=== PATIENT | female | born 1940 | race Caucasian/White ===

== ENCOUNTER 2017-04-07 15:22 | Observation (INO) | payer OTHER ==
[~2017-04-07] VITALS: Ht 165.1 cm; Wt 99.3 kg
[2017-04-07] MEDS ORDERED: SODIUM CHLORIDE FLUSH 10ML SYR IVF ONE (16:00)
[2017-04-07] MEDS ORDERED: ASPIRIN 81 MG TABLET CHEW PO ONE (16:00)
[2017-04-07] MEDS ORDERED: ASPIRIN 81 MG TABLET CHEW ONE (16:04)
[2017-04-07 16:11] LABS: BASOPHILS # (AUTO) 0.04 x10^3/uL (0-0.1); BASOPHILS % (AUTO) 1 % (0-1); EOSINOPHILS # (AUTO) 0.13 x10^3/uL (0-0.4); EOSINOPHILS % (AUTO) 2 % (1-7); LYMPHOCYTES # (AUTO) 1.82 x10^3/uL (1-3.4); LYMPHOCYTES % (AUTO) 22 % (22-44); MD NO; MEAN CORPUSCULAR HEMOGLOBIN 29.3 pg (27.0-34.8); MEAN CORPUSCULAR HGB CONC 33.2 g/dL (32.4-35.8); MEAN CORPUSCULAR VOLUME 88.2 fL (80-100); MEAN PLATELET VOLUME 8.9 fL (7.4-10.4); MONOCYTES # (AUTO) 0.63 x10^3/uL (0.2-0.8); MONOCYTES % (AUTO) 8 % (2-9); NEUTROPHILS # (AUTO) 5.58 x10^3/uL (1.8-6.8); NEUTROPHILS % (AUTO) 68 % (42-75); PLATELET COUNT 330 x10^3/uL (130-400); RED BLOOD COUNT 4.91 x10^6/uL (3.82-5.3); RED CELL DISTRIBUTION WIDTH 14.1 % (9.6-15.2)
[2017-04-07 16:22] LABS: ALBUMIN 3.7 g/dL (3.4-5.0); ANION GAP 6 mmol/L (5-15); CALCIUM 8.4 mg/dL (8.5-10.1); CHLORIDE 108 mmol/L (98-107); CREATININE 1.07 mg/dL (0.55-1.02)
[2017-04-07 16:26] LABS: ALANINE AMINOTRANSFERASE 18 U/L (12-78); ALKALINE PHOSPHATASE 91 U/L (45-117); BILIRUBIN,TOTAL 0.3 mg/dL (0.2-1.0); TOTAL PROTEIN 7.2 g/dL (6.4-8.2); TROPONIN I < 0.015 ng/mL (0.000-0.045)
[2017-04-07] MEDS ORDERED: ONDANSETRON 2MG/ML, 2ML IVPush PRN (18:00)
[2017-04-07] MEDS ORDERED: HYDROcodone/APAP 5/325 TABLET PO PRN (18:00)
[2017-04-07] MEDS ORDERED: ACETAMINOPHEN 325 MG TABLET PO PRN (18:00)
[2017-04-07] MEDS ORDERED: hydrALAzine 20 MG/ML, 1ML IVPush PRN (18:00)
[2017-04-07] MEDS ORDERED: TEMAZEPAM 15 MG CAPSULE PO PRN (18:00)
[2017-04-07] MEDS ORDERED: morphine SULFATE 10 MG/ML, 1ML IVPush PRN (18:00)
[2017-04-07] MEDS ORDERED: GABA300C10 PO (18:12)
[2017-04-07] MEDS ORDERED: FENO54TA17 PO (18:12)
[2017-04-07] MEDS ORDERED: ATOR40TA78 PO (18:12)
[2017-04-07] MEDS ORDERED: LEVO112T4 PO (18:12)
[2017-04-07] MEDS ORDERED: LISI-424 PO (18:12)
[2017-04-07] MEDS ORDERED: PANT20TA3 PO (18:12)
[2017-04-07] MEDS ORDERED: ASPI-621 PO (18:14)
[2017-04-07 18:34] LABS: FREE T4 (FREE THYROXINE) 1.36 ng/dL (0.76-1.46); THYROID STIMULATING HORMONE 0.323 mIU/L (0.358-3.740)
[2017-04-07 18:47] LABS: HEMOGLOBIN A1C 6.8 % (4.2-6.3)
[2017-04-07] MEDS ORDERED: ATORVASTATIN 40 MG TABLET PO SCH (21:00)
[2017-04-07] MEDS ORDERED: ENOXAPARIN 40 MG/0.4 ML SQ SCH (21:00)
[2017-04-07 21:29] VITALS: BP 146/70
[2017-04-07] MEDS: GABAPENTIN 300 MG CAPSULE PO SCH ×2 (22:00→22:02)
[2017-04-07] MEDS: SODIUM CHLORIDE 0.9% 1,000 ML IV SCH (22:02)
[2017-04-07 22:18] LABS: TROPONIN I < 0.015 ng/mL (0.000-0.045)
[2017-04-08 00:21] VITALS: BP 108/70
[2017-04-08 04:32] LABS: MICROSCOPIC NOT IND
[2017-04-08 04:35] LABS: CULTURE INDICATED? NO
[2017-04-08 05:11] LABS: ALBUMIN 3.1 g/dL (3.4-5.0); ANION GAP 7 mmol/L (5-15); CALCIUM 8.3 mg/dL (8.5-10.1); CHLORIDE 110 mmol/L (98-107)
[2017-04-08 05:12] LABS: CREATININE 0.84 mg/dL (0.55-1.02)
[2017-04-08 05:16] LABS: TROPONIN I < 0.015 ng/mL (0.000-0.045)
[2017-04-08] MEDS ORDERED: LEVOTHYROXINE 112 MCG TABLET PO SCH (06:00)
[2017-04-08] MEDS ORDERED: ASPIRIN 81 MG TABLET EC PO SCH (06:00)
[2017-04-08 07:10] VITALS: BP 111/70
[2017-04-08] MEDS ORDERED: PANTOPRAZOLE 20MG TABLET PO SCH (07:30)
[2017-04-08] MEDS: GABAPENTIN 300 MG CAPSULE PO SCH (08:01)
[2017-04-08] MEDS ORDERED: REGADENOSON 0.4 MG/5 ML SYRINGE ONE (08:55)
[2017-04-08] MEDS ORDERED: LISINOPRIL 5 MG TABLET PO SCH (09:00)
[2017-04-08] MEDS ORDERED: FENOFIBRATE 54 MG TABLET PO SCH (09:00)
[2017-04-08] MEDS: SODIUM CHLORIDE 0.9% 1,000 ML IV SCH (13:18)
[2017-04-08] MEDS ORDERED: PANT20TA3 PO (14:41)
[2017-04-08 14:50] VITALS: BP 120/77
== END 2017-04-08 16:32 | disposition home or self-care (01) ==
LOC: ED 16:53 → EDIP 16:54 → ED 17:26 → SUATTDRO 17:30 → 5SO 19:49 → DCLOUNGE 04-08 16:20
PROVIDERS: ADMIT Internal Medicine; ATTEND Internal Medicine
DX: R07.89 Other chest pain (principal); N17.9 Acute kidney failure, unspecified; I10 Essential (primary) hypertension; E11.65 Type 2 diabetes mellitus with hyperglycemia; E03.9 Hypothyroidism, unspecified; E78.5 Hyperlipidemia, unspecified; K21.9 Gastro-esophageal reflux disease without esophagitis; E11.42 Type 2 diabetes mellitus with diabetic polyneuropathy; Z80.0 Family history of malignant neoplasm of digestive organs; Z80.1 Family history of malignant neoplasm of trachea, bronchus and lung; Z87.891 Personal history of nicotine dependence
CPT/HCPCS: 36415; 71046; 78452; 80048; 80053; 81003; 82040; 83036; 83735; 84100; 84439; 84443; 84484; 85025; 93005; 93017; 96360; 96361; 96372; 99285; A9502; C9898; G0378; J1650; J2785; J7030

== ENCOUNTER 2017-11-26 13:39 | Emergency (ER) | payer OTHER ==
[~2017-11-26] VITALS: Ht 165.1 cm; Wt 100.8 kg
[~2017-11-26 13:39] MED LIST: ASPI-621 PO; ATOR40TA78 PO; FENO54TA17 PO; GABA300C10 PO; LEVO112T4 PO; LISI-424 PO; PANT20TA3 PO
[2017-11-26 13:58] VITALS: BP 134/70
[2017-11-26 14:27] LABS: BASOPHILS # (AUTO) 0.04 x10^3/uL (0-0.1); BASOPHILS % (AUTO) 1 % (0-1); EOSINOPHILS # (AUTO) 0.09 x10^3/uL (0-0.4); EOSINOPHILS % (AUTO) 1 % (1-7); LYMPHOCYTES # (AUTO) 1.56 x10^3/uL (1-3.4); LYMPHOCYTES % (AUTO) 21 % (22-44); MD NO; MEAN CORPUSCULAR HGB CONC 33.9 g/dL (32.4-35.8); MEAN CORPUSCULAR VOLUME 88.7 fL (80-100); MEAN PLATELET VOLUME 8.8 fL (7.4-10.4); MONOCYTES # (AUTO) 0.48 x10^3/uL (0.2-0.8); MONOCYTES % (AUTO) 6 % (2-9); NEUTROPHILS # (AUTO) 5.46 x10^3/uL (1.8-6.8); NEUTROPHILS % (AUTO) 72 % (42-75); PLATELET COUNT 383 x10^3/uL (130-400); RED CELL DISTRIBUTION WIDTH 14.7 % (9.6-15.2)
[2017-11-26 14:42] LABS: ALANINE AMINOTRANSFERASE 18 U/L (12-78); ALBUMIN 3.5 g/dL (3.4-5.0); ANION GAP 8 mmol/L (5-15); CALCIUM 9.1 mg/dL (8.5-10.1); CHLORIDE 104 mmol/L (98-107); CREATININE 1.54 mg/dL (0.55-1.02)
[2017-11-26 14:47] LABS: ALKALINE PHOSPHATASE 72 U/L (45-117); BILIRUBIN,TOTAL 0.5 mg/dL (0.2-1.0); TOTAL PROTEIN 6.9 g/dL (6.4-8.2)
== END 2017-11-26 16:12 | disposition home or self-care (01) ==
LOC: ED 15:50
DX: R60.0 Localized edema (principal); E03.9 Hypothyroidism, unspecified; E78.00 Pure hypercholesterolemia, unspecified; K21.9 Gastro-esophageal reflux disease without esophagitis; M19.90 Unspecified osteoarthritis, unspecified site
CPT/HCPCS: 36415; 80053; 85025; 99285

== ENCOUNTER → 2017-12-10 | Outpatient (CLI) | payer OTHER | END | disposition home or self-care (01) | LOC: CFH 11:35 | PROVIDERS: ATTEND Internal Medicine | DX: M17.12 Unilateral primary osteoarthritis, left knee (principal) ==

== ENCOUNTER → 2017-12-13 | Outpatient (CLI) | payer OTHER | END | disposition home or self-care (01) | LOC: CFH 08:44 | PROVIDERS: ATTEND Internal Medicine | DX: J44.9 Chronic obstructive pulmonary disease, unspecified (principal); R91.1 Solitary pulmonary nodule; I25.10 Atherosclerotic heart disease of native coronary artery without angina pectoris | CPT/HCPCS: 71250 ==

== ENCOUNTER → 2018-05-13 | Outpatient (CLI) | payer MEDICARE ==
[~2018-05-13] MED LIST changes: -ASPI-621 PO; +ASPI81TA45 PO
== END | disposition home or self-care (01) ==
LOC: CFH 12:08
PROVIDERS: ATTEND Internal Medicine
DX: Z13.820 Encounter for screening for osteoporosis (principal); M85.88 Other specified disorders of bone density and structure, other site; M94.261 Chondromalacia, right knee; M17.9 Osteoarthritis of knee, unspecified
CPT/HCPCS: 77080

== ENCOUNTER → 2018-07-27 | Outpatient (CLI) | payer MEDICARE | END | disposition home or self-care (01) | LOC: CFH 09:39 | PROVIDERS: ATTEND Internal Medicine | DX: R91.1 Solitary pulmonary nodule (principal); M51.34 Other intervertebral disc degeneration, thoracic region; I25.10 Atherosclerotic heart disease of native coronary artery without angina pectoris; I70.0 Atherosclerosis of aorta; I12.9 Hypertensive chronic kidney disease with stage 1 through stage 4 chronic kidney disease, or unspecified chronic kidney disease; E11.22 Type 2 diabetes mellitus with diabetic chronic kidney disease; N18.3 Chronic kidney disease, stage 3 (moderate); E03.9 Hypothyroidism, unspecified; K21.9 Gastro-esophageal reflux disease without esophagitis; Z79.899 Other long term (current) drug therapy; Z91.041 Radiographic dye allergy status | CPT/HCPCS: 71250 ==

== ENCOUNTER → 2018-08-31 | Outpatient (CLI) | payer MEDICARE | END | disposition home or self-care (01) | LOC: CFH 07:06 | PROVIDERS: ATTEND Internal Medicine | DX: R60.0 Localized edema (principal) | CPT/HCPCS: 93970 ==

== ENCOUNTER 2019-03-15 11:25 | Outpatient (CLI) | payer MEDICARE ==
[2019-03-15] MEDS ORDERED: MIDAZOLAM 1 MG/ML, 5ML ONE (12:53)
[2019-03-15] MEDS ORDERED: FENTANYL PF 100 MCG/2ML ONE (12:53)
[2019-05-24] MEDS ORDERED: POTA10TA6 PO (10:57)
[2019-05-24] MEDS ORDERED: MV-M1TAB16 PO (10:57)
[2019-05-24] MEDS ORDERED: MAGN400T9 PO (10:57)
[2019-05-24] MEDS ORDERED: UBID100C24 PO (10:57)
[2019-05-24] MEDS ORDERED: FURO20TA3 PO (10:57)
[2019-05-24] MEDS ORDERED: GABA600T7 PO ×2 (10:57)
== END 2019-03-15 23:59 | disposition home or self-care (01) ==
LOC: RAD 11:25
PROVIDERS: ATTEND Registered Nurse Registered Nurse First Assistant
DX: M47.817 Spondylosis without myelopathy or radiculopathy, lumbosacral region (principal); M41.56 Other secondary scoliosis, lumbar region; M51.25 Other intervertebral disc displacement, thoracolumbar region; Z87.891 Personal history of nicotine dependence; Z90.710 Acquired absence of both cervix and uterus; E10.9 Type 1 diabetes mellitus without complications; I10 Essential (primary) hypertension; N28.9 Disorder of kidney and ureter, unspecified; Z98.890 Other specified postprocedural states; Z91.041 Radiographic dye allergy status
CPT/HCPCS: 72110; 72148; 99156; 99157; J2250; J3010

== ENCOUNTER → 2019-05-24 | Outpatient (CLI) | payer MEDICARE ==
[~2019-05-24] MED LIST changes: +FURO20TA3 PO; +GABA600T7 PO; +MAGN400T9 PO; +MV-M1TAB16 PO; +POTA10TA6 PO; +UBID100C24 PO
[2019-05-24 11:21] LABS: MICROSCOPIC NOT IND
[2019-05-24 11:22] LABS: CULTURE INDICATED? NO
[2019-05-24 11:22] LABS: BASOPHILS # (AUTO) 0.04 x10^3/uL (0-0.1); BASOPHILS % (AUTO) 1 % (0-1); EOSINOPHILS % (AUTO) 1 % (1-7); LYMPHOCYTES # (AUTO) 1.21 x10^3/uL (1-3.4); LYMPHOCYTES % (AUTO) 13 % (22-44); MD NO; MEAN CORPUSCULAR HEMOGLOBIN 29.7 pg (27.0-34.8); MEAN CORPUSCULAR HGB CONC 32.9 g/dL (32.4-35.8); MEAN CORPUSCULAR VOLUME 90.2 fL (80-100); MEAN PLATELET VOLUME 7.7 fL (7.4-10.4); MONOCYTES # (AUTO) 0.42 x10^3/uL (0.2-0.8); MONOCYTES % (AUTO) 5 % (2-9); NEUTROPHILS # (AUTO) 7.39 x10^3/uL (1.8-6.8); NEUTROPHILS % (AUTO) 81 % (42-75); PLATELET COUNT 459 x10^3/uL (130-400); RED BLOOD COUNT 4.82 x10^6/uL (3.82-5.3); RED CELL DISTRIBUTION WIDTH 14.1 % (9.6-15.2)
[2019-05-24 11:33] LABS: INTERNATIONAL NORMALIZED RATIO 0.97 (0.93-1.1); PROTHROMBIN TIME 10.3 Seconds (9.6-11.5)
[2019-05-24 11:34] LABS: ALANINE AMINOTRANSFERASE 20 U/L (12-78); ALBUMIN 3.3 g/dL (3.4-5.0); ANION GAP 7 mmol/L (5-15); CALCIUM 9.9 mg/dL (8.5-10.1); CHLORIDE 104 mmol/L (98-107)
[2019-05-24 11:36] LABS: ALKALINE PHOSPHATASE 94 U/L (45-117); BILIRUBIN,TOTAL 0.4 mg/dL (0.2-1.0); TOTAL PROTEIN 7.5 g/dL (6.4-8.2)
== END | disposition home or self-care (01) ==
LOC: STAR 10:11
PROVIDERS: ATTEND Neurological Surgery
DX: Z01.818 Encounter for other preprocedural examination (principal); M48.061 Spinal stenosis, lumbar region without neurogenic claudication
CPT/HCPCS: 36415; 71046; 80053; 81003; 83036; 85025; 85610; 85730; 93005

== ENCOUNTER 2019-08-16 10:36 | Outpatient (CLI) | payer MEDICARE ==
[2019-08-16] MEDS ORDERED: OXYB5TAB10 PO (11:39)
[2019-08-16] MEDS ORDERED: PANT20TA3 PO (11:39)
[2019-08-16] MEDS ORDERED: CHOL10003 PO (11:39)
[2019-08-16 12:06] LABS: MICROSCOPIC NOT IND
[2019-08-16 12:06] LABS: BASOPHILS # (AUTO) 0.05 x10^3/uL (0-0.1); BASOPHILS % (AUTO) 1 % (0-1); EOSINOPHILS # (AUTO) 0.08 x10^3/uL (0-0.4); EOSINOPHILS % (AUTO) 1 % (1-7); LYMPHOCYTES % (AUTO) 20 % (22-44); MD NO; MEAN CORPUSCULAR HEMOGLOBIN 30.5 pg (27.0-34.8); MEAN CORPUSCULAR HGB CONC 33.6 g/dL (32.4-35.8); MEAN CORPUSCULAR VOLUME 90.6 fL (80-100); MEAN PLATELET VOLUME 8.5 fL (7.4-10.4); MONOCYTES # (AUTO) 0.57 x10^3/uL (0.2-0.8); MONOCYTES % (AUTO) 8 % (2-9); NEUTROPHILS # (AUTO) 5.03 x10^3/uL (1.8-6.8); NEUTROPHILS % (AUTO) 71 % (42-75); PLATELET COUNT 355 x10^3/uL (130-400); RED CELL DISTRIBUTION WIDTH 14.6 % (9.6-15.2)
[2019-08-16 12:10] LABS: INTERNATIONAL NORMALIZED RATIO 0.96 (0.93-1.1); PROTHROMBIN TIME 10.2 Seconds (9.6-11.5)
[2019-08-16 12:12] LABS: ALANINE AMINOTRANSFERASE 21 U/L (12-78); ANION GAP 4 mmol/L (5-15); CALCIUM 9.5 mg/dL (8.5-10.1); CHLORIDE 101 mmol/L (98-107); CREATININE 1.08 mg/dL (0.55-1.02)
[2019-08-16 12:14] LABS: ALKALINE PHOSPHATASE 81 U/L (45-117); BILIRUBIN,TOTAL 0.7 mg/dL (0.2-1.0); TOTAL PROTEIN 7.5 g/dL (6.4-8.2)
== END 2019-08-16 23:59 | disposition home or self-care (01) ==
LOC: STAR 10:36
PROVIDERS: ATTEND Neurological Surgery
DX: Z01.818 Encounter for other preprocedural examination (principal); M48.061 Spinal stenosis, lumbar region without neurogenic claudication; J84.10 Pulmonary fibrosis, unspecified; M47.814 Spondylosis without myelopathy or radiculopathy, thoracic region
CPT/HCPCS: 36415; 71046; 80053; 81003; 83036; 85025; 85610; 85730; 93005

== ENCOUNTER 2019-08-29 11:36 | Observation (INO) | payer MEDICARE ==
[~2019-08-29] VITALS: Ht 160 cm; Wt 100.1 kg
[~2019-08-29 11:36] MED LIST changes: +BACITRACIN 50,000 UNIT ONE; +BUPIVACAINE/EPI 0.5% 1:200K ONE; +BUPIVACAINE/PF-EPI 0.25% 1:200K ONE; +CHOL10003 PO; +OXYB5TAB10 PO; +VANCOMYCIN 1,000 MG ONE
[2019-08-29 12:01] VITALS: BP 147/79
[2019-08-29] MEDS ORDERED: LIDOCAINE-MPF 1%, 2ML INFIL ONE (12:03)
[2019-08-29] MEDS ORDERED: LACTATED RINGERS 1,000 ML IV ONE (12:03)
[2019-08-29] MEDS ORDERED: CHLORHEXIDINE 15 ML UDC MM STA (12:03)
[2019-08-29] MEDS ORDERED: FENTANYL PF 250 MCG/5ML ONE (14:53)
[2019-08-29] MEDS ORDERED: BUPIVACAINE/PF 0.25% ONE (15:16)
[2019-08-29] MEDS ORDERED: EPINEPHRINE 1 MG/ML, 1ML ONE (15:16)
[2019-08-29] MEDS ORDERED: LIDOCAINE PF 2%, 5ML ONE (15:38)
[2019-08-29] MEDS ORDERED: SUCCINYLCHOLINE 20 MG/ML, 10ML ONE (15:38)
[2019-08-29] MEDS ORDERED: ROCURONIUM 10 MG/ML,10ML ONE (15:38)
[2019-08-29] MEDS ORDERED: HYDROmorphone 1 MG/ML, 1ML INJ IVPush PRN ×2 (16:30→17:30)
[2019-08-29] MEDS ORDERED: ALBUTEROL SULFATE 2.5 MG/3 ML NPPB PRN (16:30)
[2019-08-29] MEDS ORDERED: ACETAMINOPHEN 325 MG TABLET PO PRN (16:30)
[2019-08-29] MEDS ORDERED: MIDAZOLAM 1 MG/ML, 2ML IV PRN (16:30)
[2019-08-29] MEDS ORDERED: LABETALOL 5MG/ML, 20ML IV PRN (16:30)
[2019-08-29] MEDS ORDERED: PROMETHAZINE 25 MG/ML, 1ML IVPush PRN (16:30)
[2019-08-29] MEDS ORDERED: FENTANYL PF 100 MCG/2ML IV PRN (16:30)
[2019-08-29] MEDS ORDERED: hydrALAzine 20 MG/ML, 1ML IV PRN (16:30)
[2019-08-29] MEDS ORDERED: OXYcodone 5 MG/5 ML ORAL.SOL UDC PO PRN (16:30)
[2019-08-29] MEDS ORDERED: METHOCARBAMOL 1,000 MG in DEXTROSE 5% 100 ML IV PRN (16:30)
[2019-08-29] MEDS ORDERED: DEXAMETHASONE 4 MG/ML, 1ML ONE (17:21)
[2019-08-29] MEDS ORDERED: PROPOFOL 10 MG/ML, 20ML ONE (17:21)
[2019-08-29] MEDS ORDERED: CEFAZOLIN 1,000 MG ONE (17:21)
[2019-08-29] MEDS ORDERED: ONDANSETRON 2MG/ML, 2ML ONE ×2 (17:21→19:20)
[2019-08-29] MEDS ORDERED: HYDROcodone/APAP 10/325 MG TABLET PO PRN (17:30)
[2019-08-29] MEDS ORDERED: TIZANIDINE 2MG TABLET PO PRN (17:30)
[2019-08-29] MEDS ORDERED: PROMETHAZINE 25 MG/ML, 1ML IM PRN (17:30)
[2019-08-29] MEDS ORDERED: SENNA/DOCUSATE TABLET PO PRN (17:30)
[2019-08-29] MEDS ORDERED: BISACODYL 10 MG SUPP PR PRN (17:30)
[2019-08-29] MEDS ORDERED: MAGNESIUM HYDROXIDE 8%, 30ML UDC PO PRN (17:30)
[2019-08-29] MEDS ORDERED: PHARMACY MAY ADJ FOR RENAL FX MC PRN (17:30)
[2019-08-29] MEDS ORDERED: DIPHENHYDRAMINE 50 MG/ML, 1ML IVPush PRN (17:30)
[2019-08-29] MEDS ORDERED: MEPERIDINE/PF 100 MG/ML IM PRN (17:30)
[2019-08-29] MEDS ORDERED: HYDROmorphone 1 MG/ML, 1ML INJ ONE (17:46)
[2019-08-29] MEDS ORDERED: OXYcodone 5 MG/5 ML ORAL.SOL UDC ONE (17:47)
[2019-08-29] MEDS ORDERED: METHOCARBAMOL 1,000 MG in DEXTROSE 5% 100 ML IV ONE (18:00)
[2019-08-29] MEDS ORDERED: FENTANYL PF 100 MCG/2ML ONE (18:04)
[2019-08-29] MEDS: ONDANSETRON 2MG/ML, 2ML IVPush PRN (19:20)
[2019-08-29 19:30] VITALS: BP 146/85
[2019-08-29] MEDS ORDERED: TEMPLATE NON-FORMULARY MED. (Gabapentin** 600 MG) PO SCH (21:00)
[2019-08-29] MEDS ORDERED: GABAPENTIN PO SCH (21:00)
[2019-08-29] MEDS: FENOFIBRATE 54 MG TABLET PO SCH (22:11)
[2019-08-29] MEDS: LISINOPRIL 5 MG TABLET PO SCH (22:11)
[2019-08-29] MEDS: GABAPENTIN 300 MG CAPSULE PO SCH (22:11)
[2019-08-29] MEDS: OXYBUTYNIN CHLORIDE 5 MG TABLET PO SCH (22:11)
[2019-08-29] MEDS: DIAZEPAM 5 MG TABLET PO PRN (23:54)
[2019-08-29] MEDS: SODIUM CHLORIDE 0.9% 1,000 ML IV SCH (23:54)
[2019-08-29] MEDS: CEFAZOLIN PMX 1GM/50ML 50 ML IVPB SCH (23:55)
[2019-08-29] MEDS: OXYcodone/APAP 5/325MG TABLET PO PRN (23:55)
[2019-08-29] MEDS: SODIUM CHLORIDE FLUSH 10ML SYR IVF SCH (23:56)
[2019-08-30 00:25] VITALS: BP 119/70
[2019-08-30] MEDS: ONDANSETRON 2MG/ML, 2ML IVPush PRN ×2 (02:01→09:04)
[2019-08-30 03:51] VITALS: BP 120/76
[2019-08-30] MEDS: OXYcodone/APAP 5/325MG TABLET PO PRN ×4 (05:04→22:04)
[2019-08-30 07:47] VITALS: BP 109/67
[2019-08-30] MEDS ORDERED: ASPIRIN 81 MG TABLET EC PO SCH (09:00)
[2019-08-30] MEDS: PANTOPRAZOLE 20MG TABLET PO SCH (09:03)
[2019-08-30] MEDS: GABAPENTIN 300 MG CAPSULE PO SCH ×3 (09:03→21:58)
[2019-08-30] MEDS: POTASSIUM CHLORIDE 10 MEQ TABLET.ER PO SCH (09:03)
[2019-08-30] MEDS: OXYBUTYNIN CHLORIDE 5 MG TABLET PO SCH ×3 (09:04→21:58)
[2019-08-30] MEDS: LEVOTHYROXINE 112 MCG TABLET PO SCH (09:04)
[2019-08-30] MEDS: SODIUM CHLORIDE FLUSH 10ML SYR IVF SCH ×2 (09:04→21:59)
[2019-08-30] MEDS: FUROSEMIDE 20 MG TABLET PO SCH (09:04)
[2019-08-30] MEDS: MAGNESIUM OXIDE 400 MG TABLET PO SCH (09:04)
[2019-08-30] MEDS: CEFAZOLIN PMX 1GM/50ML 50 ML IVPB SCH (09:22)
[2019-08-30] MEDS: SODIUM CHLORIDE 0.9% 1,000 ML IV SCH ×2 (09:23→22:04)
[2019-08-30] MEDS ORDERED: TIZANIDINE 4MG TABLET PO PRN (09:30)
[2019-08-30] MEDS: DIAZEPAM 5 MG TABLET PO PRN (12:45)
[2019-08-30 14:15] VITALS: BP 81/52
[2019-08-30 14:20] VITALS: BP 92/50
[2019-08-30] MEDS ORDERED: SODIUM CHLORIDE 0.9%, 500ML IVBOLUS ONE (15:00)
[2019-08-30 21:07] VITALS: BP 104/73
[2019-08-30] MEDS: FENOFIBRATE 54 MG TABLET PO SCH (21:58)
[2019-08-30] MEDS: LISINOPRIL 5 MG TABLET PO SCH (21:59)
[2019-08-31 00:54] VITALS: BP 122/73
[2019-08-31] MEDS: OXYcodone/APAP 5/325MG TABLET PO PRN (04:00)
[2019-08-31 07:51] VITALS: BP 93/55
[2019-08-31] MEDS: SODIUM CHLORIDE FLUSH 10ML SYR IVF SCH ×2 (08:11→20:18)
[2019-08-31] MEDS: FUROSEMIDE 20 MG TABLET PO SCH (08:16)
[2019-08-31] MEDS: OXYBUTYNIN CHLORIDE 5 MG TABLET PO SCH ×3 (08:22→20:18)
[2019-08-31] MEDS: POTASSIUM CHLORIDE 10 MEQ TABLET.ER PO SCH (08:22)
[2019-08-31] MEDS: LEVOTHYROXINE 112 MCG TABLET PO SCH (08:22)
[2019-08-31] MEDS: GABAPENTIN 300 MG CAPSULE PO SCH ×3 (08:22→20:18)
[2019-08-31] MEDS: MAGNESIUM OXIDE 400 MG TABLET PO SCH (08:22)
[2019-08-31] MEDS: PANTOPRAZOLE 20MG TABLET PO SCH (08:22)
[2019-08-31] MEDS: SODIUM CHLORIDE 0.9% 1,000 ML IV SCH ×2 (08:23→18:22)
[2019-08-31 14:00] VITALS: BP 97/62
[2019-08-31] MEDS ORDERED: OXYC-302 PO (14:24)
[2019-08-31] MEDS ORDERED: TIZA2CAP2 PO (14:25)
[2019-08-31] MEDS: HYDROcodone/APAP 5/325 TABLET PO PRN (15:31)
[2019-08-31 19:01] VITALS: BP 100/67
[2019-08-31] MEDS: FENOFIBRATE 54 MG TABLET PO SCH (20:18)
[2019-08-31] MEDS: LISINOPRIL 5 MG TABLET PO SCH (20:18)
[2019-09-01 01:12] VITALS: BP 96/60
[2019-09-01] MEDS: SODIUM CHLORIDE 0.9% 1,000 ML IV SCH (01:23)
[2019-09-01] MEDS: HYDROcodone/APAP 5/325 TABLET PO PRN (01:27)
[2019-09-01] MEDS: LEVOTHYROXINE 112 MCG TABLET PO SCH (05:53)
[2019-09-01 07:43] VITALS: BP 90/63
[2019-09-01] MEDS: SODIUM CHLORIDE FLUSH 10ML SYR IVF SCH (09:00)
[2019-09-01 11:04] VITALS: BP 113/66
[2019-09-01] MEDS: POTASSIUM CHLORIDE 10 MEQ TABLET.ER PO SCH (11:24)
[2019-09-01] MEDS: PANTOPRAZOLE 20MG TABLET PO SCH (11:24)
[2019-09-01] MEDS: MAGNESIUM OXIDE 400 MG TABLET PO SCH (11:24)
[2019-09-01] MEDS: OXYBUTYNIN CHLORIDE 5 MG TABLET PO SCH (11:24)
[2019-09-01] MEDS: FUROSEMIDE 20 MG TABLET PO SCH (11:24)
[2019-09-01] MEDS: GABAPENTIN 300 MG CAPSULE PO SCH (11:26)
== END 2019-09-01 12:24 | disposition home or self-care (01) ==
LOC: OUT 11:36 → ORIP 17:23 → 4NE 19:25 → DCLOUNGE 09-01 12:13
PROVIDERS: ADMIT Neurological Surgery; ATTEND Neurological Surgery
DX: Z03.818 Encounter for observation for suspected exposure to other biological agents ruled out (principal); M48.061 Spinal stenosis, lumbar region without neurogenic claudication; M51.37 Other intervertebral disc degeneration, lumbosacral region; I10 Essential (primary) hypertension; E11.9 Type 2 diabetes mellitus without complications; E03.9 Hypothyroidism, unspecified; G62.9 Polyneuropathy, unspecified; E78.5 Hyperlipidemia, unspecified; K21.9 Gastro-esophageal reflux disease without esophagitis; E66.9 Obesity, unspecified; J44.9 Chronic obstructive pulmonary disease, unspecified; Z90.710 Acquired absence of both cervix and uterus; Z87.891 Personal history of nicotine dependence; Z79.82 Long term (current) use of aspirin; Z79.899 Other long term (current) drug therapy
CPT/HCPCS: 36415; 63047; 63048; 72100; 82962; 87635; 96365; 96366; 96375; 96376; 97116; 97162; 97165; G0378; J0171; J0330; J0690; J1100; J1170; J2405; J2704; J2800; J3010; J3490; J7030; J7040; J7120; J3370

== ENCOUNTER → 2019-11-14 | Outpatient (CLI) | payer MEDICARE ==
[~2019-11-14] MED LIST changes: -BACITRACIN 50,000 UNIT ONE; -BUPIVACAINE/EPI 0.5% 1:200K ONE; -BUPIVACAINE/PF-EPI 0.25% 1:200K ONE; +OXYC-302 PO; -PANT20TA3 PO; +PANT20TA4 PO; +TIZA2CAP2 PO; -VANCOMYCIN 1,000 MG ONE
== END | disposition home or self-care (01) ==
LOC: CFH 12:46
PROVIDERS: ATTEND Internal Medicine
DX: J84.10 Pulmonary fibrosis, unspecified (principal); J98.4 Other disorders of lung; I70.0 Atherosclerosis of aorta; I25.10 Atherosclerotic heart disease of native coronary artery without angina pectoris; M51.34 Other intervertebral disc degeneration, thoracic region
CPT/HCPCS: 71250

== ENCOUNTER → 2020-07-30 | Outpatient (CLI) | payer MEDICARE, OTHER ==
[~2020-07-30] MED LIST changes: -LISI-424 PO; +LISI-606 PO; -OXYC-302 PO; +OXYC1TAB14 PO
== END | disposition home or self-care (01) ==
LOC: CFH 10:41
PROVIDERS: ATTEND Internal Medicine
DX: Z13.820 Encounter for screening for osteoporosis (principal); N95.9 Unspecified menopausal and perimenopausal disorder; M85.89 Other specified disorders of bone density and structure, multiple sites
CPT/HCPCS: 77080

== ENCOUNTER → 2020-09-20 | Outpatient (CLI) | payer MEDICARE ==
[~2020-09-20] MED LIST changes: +OXYC1TAB12 PO; -OXYC1TAB14 PO
== END | disposition home or self-care (01) ==
LOC: CVU 08:00
PROVIDERS: ATTEND Internal Medicine
DX: I08.8 Other rheumatic multiple valve diseases (principal); E78.00 Pure hypercholesterolemia, unspecified; I11.9 Hypertensive heart disease without heart failure
CPT/HCPCS: 93306